=== PATIENT | male | born 1955 | race Caucasian/White ===

== ENCOUNTER 2017-01-20 16:49 | Emergency (ER) | payer MEDICARE, OTHER ==
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
--- NOTE | 2017-01-20 18:06 | XR ---
EXAMINATION TYPE: XR chest 2V DATE OF EXAM: 01/20/2017 5:55 PM COMPARISON: 06/05/2016 HISTORY: Shortness of breath TECHNIQUE: Frontal and lateral views of the chest are obtained. FINDINGS: Scattered senescent parenchymal changes noted. Hyperinflation compatible with COPD. No evidence for infiltrate. No evidence for atelectasis. Chronic pleural parenchymal change in right lateral lung base. Heart size is stable. Mediastinal structures are stable and grossly unremarkable. No evidence for hilar prominence. Degenerative changes dorsal spine. IMPRESSION: 1. No evidence for acute pulmonary disease.
--- NOTE | 2017-01-20 18:06 | US ---
EXAMINATION TYPE: US venous doppler duplex UE RT DATE OF EXAM: 01/20/2017 5:49 PM COMPARISON: NONE CLINICAL HISTORY: swelling r/o dvt. Intermittent right arm edema, right wrist/hand pain SIDE PERFORMED: right Right Arm: No evidence of DVT as visualized. *Incidental finding: lump right back of neck, heterogene ous area noted = 3.9 x 1.7 x 2.7cm IMPRESSION: 1. No evidence for DVT. 2. Nonspecific masslike area at the base of the neck. Consider CT correlation.
[2017-01-20] MEDS ORDERED: RX INFO: IV CONTRAST WAS GIVEN 1 EACH MISC MISCELLANE PRN (18:09)
[2017-01-20 18:24] VITALS: BP 116/70; PULSE 78; RESP 18; TEMP 97
== END 2017-01-20 18:23 | disposition home or self-care (01) ==
LOC: EC 16:49
DX: M79.89 Other specified soft tissue disorders (principal); R22.1 Localized swelling, mass and lump, neck; F17.200 Nicotine dependence, unspecified, uncomplicated; I25.2 Old myocardial infarction; F43.10 Post-traumatic stress disorder, unspecified; Z79.51 Long term (current) use of inhaled steroids; Z79.82 Long term (current) use of aspirin; Z79.899 Other long term (current) drug therapy
CPT/HCPCS: 71020; 99284

== ENCOUNTER → 2021-06-23 | Outpatient (CLI) | payer OTHER ==
--- NOTE | 2021-06-23 08:16 | CTL ---
EXAMINATION TYPE: CT Low Dose Lung DATE OF EXAM ORDERED: 06/23/2021 COMPARISON: None HISTORY: . Low Dose CT Lung Screening CT DLP: 91.[address] CTDI: 2.3 mGy IV CONTRAST USED: None. SCREENING VISIT: First visit COMPARISON: None. TECHNIQUE: Low dose computed tomography scan was performed through the chest at 1 millimeter thick se ctions and reconstructed images in the coronal plane at [address] DIAGNOSTIC QUALITY: Satisfactory FINDINGS: LUNG NODULES: Pleural-based 4 mm nodule right upper lobe image 182. Calcified granuloma left upper lo be. LUNGS: COPD: Severity: Moderate. Moderate centrilobular emphysema. Fibrosis: Severity:None Lymph nodes: None Other findings: None RIGHT PLEURAL SPACE: Effusion: None Calcification: None Thickening: None Pneumothorax: None LEFT PLEURAL SPACE: Effusion: None Calcification: None Thickening: None Pneumothorax: None HEART: Heart Size: Mildly enlarged Coronary calcification: Mild Pericardial effusion: None OTHER FINDINGS: Upper abdomen: No significant abnormality Bony thorax: Degenerative changes Supraclavicular region: No significant abnormalityOther: No significant abnormalityI IMPRESSION: Benign FOLLOW UP CT CHEST RECOMMENDATION: Follow-up screening in one year CT LUNG RAD: LUNG RAD CATEGORY 2 benign
== END | disposition home or self-care (01) ==
LOC: RADCTMAIN 06:49
DX: Z12.2 Encounter for screening for malignant neoplasm of respiratory organs (principal); R91.1 Solitary pulmonary nodule
CPT/HCPCS: 71271

== ENCOUNTER → 2021-07-10 | Outpatient (CLI) | payer OTHER ==
--- NOTE | 2021-07-10 09:53 | US ---
EXAMINATION TYPE: US duplex aorta DATE OF EXAM: 07/10/2021 COMPARISON: CT 2016 CLINICAL HISTORY: G87.891 Personal history of nicotine dependence. Medicare screening EXAM MEASUREMENTS: Abdominal Aorta: TRV X AP Proximal: 1.7x2.1cm Mid: 1.6x1.8cm Distal: 1.4x1.7cm Bifurcation: 0.7x 0.8cm 0.7x0.9cm Large amount of plaque seen in the Left iliac, plaque seen throughout Diffuse atherosclerotic changes are present on images saved. Aorta is successfully visualized through the bifurcation. IMPRESSION: No ultrasound evidence for greater than 3.0 cm AAA.
== END | disposition home or self-care (01) ==
LOC: RADUSWWP 08:59
DX: Z13.6 Encounter for screening for cardiovascular disorders (principal); Z87.891 Personal history of nicotine dependence; I70.0 Atherosclerosis of aorta
CPT/HCPCS: 93979

== ENCOUNTER 2021-11-07 14:45 | Emergency (ER) | payer OTHER ==
[2021-11-07 15:08] VITALS: BP 164/64; PULSE 82; RESP 18; TEMP 98.4
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
[2021-11-07] MEDS ORDERED: SODIUM CHLORIDE 0.9% 1,000 ML IV ONE (16:15)
[2021-11-07 16:34] LABS: Basophils % (A) 1 %; Eosinophils # (A) 0.3 k/uL (0-0.7); Eosinophils % (A) 4 %; HCT 44.8 % (39.0-53.0); Lymphocytes # (A) 1.5 k/uL (1.0-4.8); Lymphocytes % (A) 18 %; MCH 31.7 pg (25.0-35.0); MCHC 33.5 g/dL (31.0-37.0); MCV 94.5 fL (80.0-100.0); Mean Platelet Volume 8.3; Monocytes # (A) 0.2 k/uL (0-1.0); Monocytes % (A) 2 %; Neutrophils # (A) 5.9 k/uL (1.3-7.7); Neutrophils % (A) 74 %; Platelet Count 148 k/uL (150-450); RBC 4.74 m/uL (4.30-5.90); RDW 13.6 % (11.5-15.5)
[2021-11-07 16:43] LABS: ALT 19 U/L (4-49); AST 28 U/L (17-59); African American GFR (CKD) >90 (>60 ml/min/1.73 sqM); Albumin 4.1 g/dL (3.5-5.0); Alkaline Phosphatase 88 U/L (38-126); Anion Gap 10 mmol/L; Blood Urea Nitrogen 13 mg/dL (9-20); Calcium 8.4 mg/dL (8.4-10.2); Carbon Dioxide 20 mmol/L (22-30); Chloride 106 mmol/L (98-107); Glucose 149 mg/dL (74-99); Non-African American GFR(CKD) 87 (>60 ml/min/1.73 sqM); Phosphorus 2.6 mg/dL (2.5-4.5); Potassium 3.8 mmol/L (3.5-5.1); Sodium 136 mmol/L (137-145); Total Bilirubin 0.5 mg/dL (0.2-1.3)
[2021-11-07 17:47] LABS: INR 0.9 (<1.2); Partial Thromboplastin Time 22.3 sec (22.0-30.0); Prothrombin Time 10.2 sec (9.0-12.0)
== END 2021-11-07 18:04 | disposition home or self-care (01) ==
LOC: EC 14:45
DX: R79.9 Abnormal finding of blood chemistry, unspecified (principal); I25.2 Old myocardial infarction; F43.10 Post-traumatic stress disorder, unspecified; F17.200 Nicotine dependence, unspecified, uncomplicated; F12.90 Cannabis use, unspecified, uncomplicated; Z90.49 Acquired absence of other specified parts of digestive tract; Z79.82 Long term (current) use of aspirin
CPT/HCPCS: 36415; 80053; 83735; 84100; 85025; 85610; 85730; 96360; 99283

== ENCOUNTER → 2022-07-27 | Outpatient (CLI) | payer OTHER | END | disposition home or self-care (01) | LOC: LABWHC1 08:21 | PROVIDERS: ATTEND Surgery Plastic and Reconstructive Surgery | DX: I11.9 Hypertensive heart disease without heart failure (principal) | CPT/HCPCS: 36415; 93005 ==

== ENCOUNTER → 2022-07-27 | Outpatient (CLI) | payer OTHER ==
--- NOTE | 2022-07-27 08:41 | CTL ---
EXAMINATION TYPE: CT Low Dose Lung DATE OF EXAM: 07/27/2022 8:22 AM CLINICAL INDICATION:Male, 67 years old with history of Z87.891 personal hx nicotine dependence; Perso nal history of nicotine dependence , history of tobacco use. COMPARISON: 06/23/2021 TECHNIQUE: Multiple axial non-contrast scans were obtained from approximately the lung apices through the upper abdomen. Coronal and sagittal reformatted images were obtained. Low dose technique was uti lized. CT DLP: 87.2 mGycm, Automated exposure control for dose reduction was used. CT Contrast: Contrast used: None Oral contrast used: None FINDINGS: ======== Lack of intravenous contrast and low dose technique limits the evaluation of the vascular and soft ti ssue structures. LUNGS: There is centrilobular and paraseptal emphysema changes. Nodules: RUL: 4 mm nodule anteriorly along the pleura is unchanged series 4 image 181. RML: Nodular change next the fissure measuring up to 7 mm is unchanged from prior. Could represen t atelectasis series 4 image 134 RLL: None. BECKI: Calcified granuloma series 4 image 84, LLL: None. AIRWAYS: Unremarkable. LOWER NECK: Grossly unremarkable. LYMPH NODES: No grossly enlarged lymph nodes in the thorax. MEDIASTINUM?AND JOHN: Grossly unremarkable. HEART AND VASCULAR STRUCTURES: The heart is within normal limits for size there is moderate to severe coronary artery atherosclerosis. Atherosclerosis of the arterial vasculature. PLEURA & PERICARDIUM: Grossly unremarkable. CHEST WALL: Grossly unremarkable. MUSCULOSKELETAL: Multilevel disc degeneration changes throughout the spine. UPPER ABDOMEN: Calcified granuloma in the spleen. IMPRESSION: 1. Stable pulmonary nodules from prior exam on 06/23/2021. 2. Moderate emphysema changes. 3. Moderate to severe coronary artery atherosclerosis. CT LUNG RAD AND CT CHEST RECOMMENDATION: Lung-Rad 2 Benign Appearance or Behavior: Continue annual sc reening with LDCT in 12 months. S Modifier (other clinically significant findings): Moderate to severe coronary artery atherosclerosi s.
== END | disposition home or self-care (01) ==
LOC: RADCTMAIN 08:03
DX: Z12.2 Encounter for screening for malignant neoplasm of respiratory organs (principal); I25.10 Atherosclerotic heart disease of native coronary artery without angina pectoris; J43.2 Centrilobular emphysema; R91.8 Other nonspecific abnormal finding of lung field; Z87.891 Personal history of nicotine dependence
CPT/HCPCS: 71271

== ENCOUNTER → 2022-12-24 | Outpatient (CLI) | payer OTHER ==
[2022-12-24 16:06] LABS: African American GFR (CKD) 89.4 (60.0-200.0); Anion Gap 8.5 mmol/L (10.00-18.00); Blood Urea Nitrogen 15.5 mg/dL (9.0-27.0); Carbon Dioxide 26.7 mmol/L (20.0-27.5); Non-African American GFR(CKD) 77.2 (60.0-200.0); Potassium 4.8 mmol/L (3.5-5.5)
[2022-12-24 16:17] LABS: HCT 47.7 % (39.6-50.0); HGB 15.2 g/dL (13.0-17.0); MCH 30.4 pg (27.0-32.0); MCHC 31.9 g/dL (32.0-37.0); MCV 95.4 fL (80.0-97.0); Mean Platelet Volume 11.8 fL (9.5-12.2); NRBC Per 100 WBC 0 /100 WBCS (0.0-0.0); Platelet Count 161 X 10*3/uL (140-440); RDW 13.2 % (11.5-14.5)
== END | disposition home or self-care (01) ==
LOC: LABWHC1 09:45
PROVIDERS: ATTEND Internal Medicine Interventional Cardiology
DX: Z01.812 Encounter for preprocedural laboratory examination (principal); I25.10 Atherosclerotic heart disease of native coronary artery without angina pectoris
CPT/HCPCS: 36415; 80051; 82565; 84520; 85027

== ENCOUNTER 2023-01-01 10:08 | Inpatient (IN) | payer OTHER ==
[~2023-01-01 10:08] MED LIST: ALPRAZolam 0.25 MG TAB PO PRN; ALPRAZolam 0.5 MG TAB PO PRN; ASPIRIN 325 MG TAB PO STA; ATORVASTATIN 80 MG TAB PO STA; HEPARIN SODIUM,PORCINE 10,000 UNIT in SODIUM CHLORIDE 0.9% 1,000 ML IRRIGATION PRN; HEPARIN SODIUM,PORCINE 2,500 UNIT in SODIUM CHLORIDE 0.9% 250 ML IRRIGATION PRN; NITROGLYCERIN SL TABS 0.4 MG TAB SUBLINGUAL PRN; SODIUM CHLORIDE 0.9% 1,000 ML in EMPTY BAG 1 BAG IV SCH
[2023-01-01] MEDS ORDERED: LIDOCAINE 1% INJ 10MG/ML (20 ML MDV) ONE (12:57)
[2023-01-01] MEDS ORDERED: VERAPAMIL 2.5 MG/ML 2 ML AMP ONE (12:57)
[2023-01-01] MEDS ORDERED: LIDOCAINE 1% INJ 10MG/ML (5 ML VIAL-PF) SQ ONE (13:10)
[2023-01-01] MEDS ORDERED: MIDAZOLAM 2 MG/2 ML VIAL IV ONE (13:11)
[2023-01-01] MEDS ORDERED: VERAPAMIL SYRINGE (5 MG/10 ML) INTRAARTER ONE (13:11)
[2023-01-01] MEDS: HEPARIN SODIUM 1,000 UN/ML (10ML VL) IV ONE ×2 (13:13→13:41)
[2023-01-01] MEDS ORDERED: niCARdipine 25 MG/10 ML VIAL ONE (13:43)
[2023-01-01] MEDS ORDERED: fentaNYL (PF) 50 MCG/ML 2 ML AMP ONE (13:52)
[2023-01-01] MEDS ORDERED: fentaNYL (PF) 50 MCG/ML 2 ML AMP IV ONE (13:54)
[2023-01-01] MEDS ORDERED: PRASUGREL 10 MG TAB ONE (14:28)
[2023-01-01] MEDS ORDERED: PRASUGREL 10 MG TAB PO ONE (14:30)
[2023-01-01] MEDS ORDERED: NITROGLYCERIN 1000MCG/10ML SYRINGE INTRACORON ONE (14:34)
[2023-01-01] MEDS ORDERED: niCARdipine Syringe (1,000 mcg/10 mL) INTRACORON ONE (14:35)
[2023-01-01] MEDS ORDERED: ZOLPIDEM 5 MG TAB PO PRN ×2 (14:49→14:52)
[2023-01-01] MEDS ORDERED: IPRATROPIUM-ALBUTEROL 3 ML NEB INHALATION PRN (14:49)
[2023-01-01] MEDS ORDERED: MAG HYDROX/AL HYDROX/SIMETH 30 ML CUP PO PRN (14:52)
[2023-01-01] MEDS ORDERED: ATROPINE SULFATE 0.1 MG/ML 10ML SYRINGE IV PRN (14:52)
[2023-01-01] MEDS ORDERED: RX INFO: IV CONTRAST WAS GIVEN 1 EACH MISC MISCELLANE PRN (14:52)
[2023-01-01] MEDS ORDERED: HYDROmorphone 1 MG/ML 1 ML SYRINGE ONE (14:58)
[2023-01-01] MEDS ORDERED: IOPAMIDOL-370 125ML BTL INJ ONE (15:02)
[2023-01-01] MEDS ORDERED: ENALAPRILAT 1.25 MG/ML 1 ML VIAL ONE (15:03)
[2023-01-01] MEDS ORDERED: hydrALAZINE HCL 20 MG/ML 1 ML VIAL ONE (15:03)
[2023-01-01] MEDS ORDERED: NITROGLYCERIN-D5W PMX 50 MG in DEXTROSE/WATER 1 250ML.BAG IV SCH (15:45)
[2023-01-01 17:08] LABS: Glucose,Whole Blood 136 mg/dL (70-110)
[2023-01-01] MEDS: GABAPENTIN 400 MG CAP PO SCH ×2 (18:37→21:30)
[2023-01-01] MEDS: SYMBICORT 160-4.5 MCG INHALER INHALATION SCH (20:05)
--- NOTE | 2023-01-01 20:06 | P.PCN ---
Date of Procedure: 01/01/23 Operative Findings: CARDIAC CATHETERIZATION AND PERCUTANEOUS CORONARY INTERVENTION PERFORMING PHYSICIAN: Mian Swain MD, [facility] PROCEDURE PERFORMED: 1. Selective right and left coronary angiogram 2. Successful stenting of mid RCA using using 3.0 x 38 mm Xience JOSR with an excellent angiographic results 3. Successful stenting of the proximal RCA using 3.25 x 23 mm Xience JOSR with an excellent angiographic results 4. Adjunctive use of intravascular ultrasound of the right coronary artery INDICATION: Chest discomfort concerning for angina in this 67-year-old gentleman with coronary artery disease and prior stenting of the right coronary artery as well as significant history of smoking COMPLICATION: None APPROACH: Right radial artery LEVEL OF SEDATION: Moderate with the sedation time of 100 minutes PROCEDURE DESCRIPTION: After obtaining an informed consent the patient was brought to the cardiac slab worker. The right radial artery was cannulated using micropuncture technique under ultrasound guidance, the micropuncture wire passed easily then I placed a 6- Slovak sheath at the right radial artery. I gave the patient 2 mg of verapamil intra-arterial and 5000 use of heparin intravenous. I did after that selective right and left coronary angiogram using JR4 and JL 3.5 catheters. After that I did intervene on the right coronary artery. The procedure was completed was no complication. SELECTIVE CORONARY ANGIOGRAM: The right coronary artery: Large-caliber vessel and a dominant vessel. The proximal RCA has a critical lesion appeared to be in the range of 80%. The mid RCA has also critical in- stent restenosis appeared to be in the range of 99.9%. Left main: Has mild disease only. Bifurcates into an LCx and LAD The left circumflex: The LCx gives rises into an OM1 which appeared to be angiographically normal. The LCx gives rises into on to which is a large caliber vessel has a lesion appears to be in the range of 60%. The left anterior descending artery: The proximal LAD appears to have mild disease only. The mid LAD also has mild disease only. The LAD in the mid to distal portion has a lesion appeared to be in the range of 40%. PCI OF THE RCA: Anticoagulation was initiated using heparin with continuous ACT monitoring. Subsequently I did engage the right coronary artery using JR4 guiding catheter. I did wire the right coronary artery using a whisper wire. Attempting advancing 2.0 mm balloon was unsuccessful. At that point I decided to wire the right coronary artery using another wire with a run-through wire. Both wires were positioned in the PDA and PLV branches of the right coronary artery. I could not advanced a 2.0 mm balloon in spite of using double wire and at that point I decided to start using 1.5 mm balloon which was inflated under 14 jesse for 20 seconds. Subsequently I was able to advance 2.0 15 mm balloon which was inflated but the balloon was not fully inflated. I decided to go ahead and use 2.0 mm noncompliant balloon which was inflated under 16 jesse. Subsequently I used 2.25 mm and subsequently 2.5 mm and then 3 mm noncompliance balloon. After that I was able to advance 3.0 x 38 mm stent where the stent was positioned under fluoroscopy guidance and deployed under its nominal pressure after the jean pierre wire was pulled out. Then approximately I did balloon angioplasty using 3 mm balloon before I deployed 3.25 x 23 mm stent where the stent again was positioned under fluoroscopy guidance and deployed under its nominal pressure. Final angiogram was performed and showed excellent angiographic results and the procedure was completed was no complication CONCLUSION: Critical disease involving the proximal and mid RCA. I did perform successful s tenting of the proximal and mid RCA as described above At least intermediate lesion involving the second obtuse marginal branch of the left circumflex which is a large caliber vessel POSTPROCEDURE MANAGEMENT: 1. Dual antiplatelet therapy using aspirin and Plavix for 12 month 2. Consider PCI of the OM 2 if the patient remains symptomatic
[2023-01-01] MEDS ORDERED: ATORVASTATIN 20 MG TAB PO SCH (21:00)
[2023-01-01] MEDS ORDERED: risperiDONE 1 MG TAB PO SCH (21:00)
[2023-01-01] MEDS: CYCLOBENZAPRINE 10 MG TAB PO SCH (21:30)
[2023-01-02 06:16] LABS: Basophils % (A) 0 %; Eosinophils # (A) 0.1 k/uL (0-0.7); Eosinophils % (A) 1 %; HCT 42.6 % (39.0-53.0); HGB 14.3 gm/dL (13.0-17.5); Lymphocytes # (A) 1.3 k/uL (1.0-4.8); Lymphocytes % (A) 13 %; MCH 30.8 pg (25.0-35.0); MCHC 33.5 g/dL (31.0-37.0); MCV 91.7 fL (80.0-100.0); Mean Platelet Volume 8.6; Monocytes # (A) 0.4 k/uL (0-1.0); Monocytes % (A) 4 %; Neutrophils # (A) 8.3 k/uL (1.3-7.7); Neutrophils % (A) 81 %; Platelet Count 146 k/uL (150-450); RBC 4.65 m/uL (4.30-5.90); RDW 13.2 % (11.5-15.5); WBC 10.2 k/uL (3.8-10.6)
[2023-01-02 07:00] LABS: African American GFR (CKD) >90 (>60 ml/min/1.73 sqM); Anion Gap 9 mmol/L; Blood Urea Nitrogen 11 mg/dL (9-20); Calcium 8.6 mg/dL (8.4-10.2); Carbon Dioxide 21 mmol/L (22-30); Chloride 108 mmol/L (98-107); Glucose 101 mg/dL (74-99); Non-African American GFR(CKD) >90 (>60 ml/min/1.73 sqM); Potassium 3.7 mmol/L (3.5-5.1); Sodium 138 mmol/L (137-145)
[2023-01-02] MEDS ORDERED: PANTOPRAZOLE 40 MG TABLET PO SCH (07:30)
--- NOTE | 2023-01-02 07:49 | P.DS ---
Providers Date of admission: 01/01/23 16:16 Attending physician: Mian Swain Consults: 01/01/23 14:52 Consult Physician Routine Consulting Provider: [facility] Consult Reason/Comments: Post Interventional Patient Do you want consulting provider notified?: Already Contacted Primary care physician: [facility] Course: The patient is a pleasant 67-year-old gentleman who underwent yesterday a heart catheterization and was found to have critical disease involving the left circumflex coronary artery. He underwent successful stenting of the left circumflex with an extremely complex procedure due to critical in-stent restenosis in a very healthy calcified artery. The procedure was performed from right radial approach with a good angiographic results by the end. Postprocedure the patient developed chest discomfort with ST segment elevation in lead V1 only because we closely acute marginal branch during the stenting. Subsequently his pressure was elevated. He was started on nitroglycerin IV and he was admitted to the intensive care unit. He was watched overnight. He has been off nitroglycerin since midnight. His pressure has been within normal limits. He is asymptomatic from a cardiac vascular standpoint of view. He is "feeling well". The patient is going to be discharged on dual antiplatelet therapy along with high intensity statin. I'm going to follow-up with the patient next week in the office. He was advised an informed about the importance of taking dual antiplatelet therapy religiously. Plan - Discharge Summary Discharge Rx Participant: Yes New Discharge Prescriptions: New Clopidogrel [Plavix] 75 mg PO DAILY #90 tablet Continue Aspirin EC [Ecotrin Low Dose] 81 mg PO DAILY Zolpidem [Ambien] 10 mg PO HS PRN PRN Reason: Insomnia Tamsulosin HCl [Flomax] 0.4 mg PO DAILY Sertraline [Zoloft] 150 mg PO DAILY Omeprazole 20 mg PO DAILY Lovastatin [Mevacor] 80 mg PO HS Gabapentin [Neurontin] 800 mg PO TID Cyclobenzaprine [Flexeril] 10 mg PO TID Budesonide-Formot 160-4.5 Mcg [Symbicort 160-4.5 Mcg Inhaler] 2 puff INHALAT ION RT-BID Ipratropium-Albuterol Nebulize [Duoneb 0.5 mg-3 mg/3 ml Soln] 3 ml INHALATION RT-Q6H PRN PRN Reason: Shortness Of Breath risperiDONE 0.5 mg PO DAILY Vit D (Unknown) 1 tab PO DAILY Feosol (Unknown) 1 tab PO DAILY risperiDONE 1 mg PO HS Discharge Medication List Aspirin EC [Ecotrin Low Dose] 81 mg PO DAILY 05/18/16 [History] Cyclobenzaprine [Flexeril] 10 mg PO TID 05/18/16 [History] Gabapentin [Neurontin] 800 mg PO TID 05/18/16 [History] Lovastatin [Mevacor] 80 mg PO HS 05/18/16 [History] Omeprazole 20 mg PO DAILY 05/18/16 [History] Sertraline [Zoloft] 150 mg PO DAILY 05/18/16 [History] Tamsulosin HCl [Flomax] 0.4 mg PO DAILY 05/18/16 [History] Zolpidem [Ambien] 10 mg PO HS PRN 05/18/16 [History] Budesonide-Formot 160-4.5 Mcg [Symbicort 160-4.5 Mcg Inhaler] 2 puff INHALATION RT-BID 01/20/17 [History] Ipratropium-Albuterol Nebulize [Duoneb 0.5 mg-3 mg/3 ml Soln] 3 ml INHALATION RT-Q6H PRN 01/20/17 [History] Feosol (Unknown) 1 tab PO DAILY 12/30/22 [History] Vit D (Unknown) 1 tab PO DAILY 12/30/22 [History] risperiDONE 0.5 mg PO DAILY 12/30/22 [History] risperiDONE 1 mg PO HS 12/30/22 [History] Clopidogrel [Plavix] 75 mg PO DAILY #90 tablet 01/02/23 [Rx] Follow up Appointment(s)/Referral(s): Mian Swain MD [STAFF PHYSICIAN] - 01/06/23 2:30 pm
[2023-01-02] MEDS ORDERED: POTASSIUM BICARBONATE/CIT AC 20 MEQ TABLET.EFF NG-TUBE SCH (08:00)
[2023-01-02] MEDS ORDERED: POTASSIUM CHLORIDE ER 20 MEQ TAB.ER PO SCH (08:00)
[2023-01-02] MEDS ORDERED: ACETAMINOPHEN TAB 325 MG TAB PO PRN (08:08)
[2023-01-02] MEDS: GABAPENTIN 400 MG CAP PO SCH (08:15)
[2023-01-02] MEDS: CYCLOBENZAPRINE 10 MG TAB PO SCH (08:17)
[2023-01-02 08:25] VITALS: TEMP 98
[2023-01-02] MEDS ORDERED: TAMSULOSIN 0.4 MG CAP.ER.24H PO SCH (09:00)
[2023-01-02] MEDS ORDERED: SERTRALINE 50 MG TAB PO SCH (09:00)
[2023-01-02] MEDS ORDERED: ASPIRIN 325 MG TAB PO SCH (09:00)
[2023-01-02] MEDS ORDERED: FERROUS SULFATE 325 MG TAB PO SCH (09:00)
[2023-01-02] MEDS ORDERED: PRASUGREL 10 MG TAB PO SCH (09:00)
[2023-01-02] MEDS ORDERED: CHOLECALCIFEROL 25 MCG (1000 IU) TABLET PO SCH (09:00)
[2023-01-02] MEDS ORDERED: risperiDONE 0.5 MG TAB PO SCH (09:00)
[2023-01-02] MEDS ORDERED: ASPIRIN 81 MG PO SCH (09:00)
[2023-01-02 10:16] VITALS: BP 149/108; PULSE 90; RESP 25
[2023-01-02] MEDS: SYMBICORT 160-4.5 MCG INHALER INHALATION SCH (10:56)
== END 2023-01-02 11:13 | disposition home or self-care (01) | DRG 247 ==
LOC: CATHCVL 10:08 → 2SICU 16:16
PROVIDERS: ADMIT Internal Medicine Interventional Cardiology; ATTEND Internal Medicine Interventional Cardiology
PROC: 027035Z Dilation of Coronary Artery, One Artery with Two Drug-eluting Intraluminal Devices, Percutaneous Approach (ICD-10-PCS; principal; 2023-01-01 13:04)
PROC: 4A023N7 Measurement of Cardiac Sampling and Pressure, Left Heart, Percutaneous Approach (ICD-10-PCS; principal; 2023-01-01 13:04)
PROC: B240ZZ3 Ultrasonography of Single Coronary Artery, Intravascular (ICD-10-PCS; principal; 2023-01-01 13:04)
PROC: B2111ZZ Fluoroscopy of Multiple Coronary Arteries using Low Osmolar Contrast (ICD-10-PCS; principal; 2023-01-01 13:04)
DX: I25.10 Atherosclerotic heart disease of native coronary artery without angina pectoris (principal); T82.855A Stenosis of coronary artery stent, initial encounter; I10 Essential (primary) hypertension; E78.5 Hyperlipidemia, unspecified; R07.89 Other chest pain; J44.9 Chronic obstructive pulmonary disease, unspecified; F17.210 Nicotine dependence, cigarettes, uncomplicated; Z28.310 Unvaccinated for COVID-19; Z95.5 Presence of coronary angioplasty implant and graft; Z79.899 Other long term (current) drug therapy
CPT/HCPCS: 80048; 85025; 92978; 93454

== ENCOUNTER 2023-07-13 09:44 | Day surgery (SDC) | payer OTHER ==
[~2023-07-13 09:44] MED LIST changes: +HEPARIN SODIUM,PORCINE (1 ML) 2,500 UNIT in SODIUM CHLORIDE 0.9% 250 ML IRRIGATION PRN; -HEPARIN SODIUM,PORCINE 2,500 UNIT in SODIUM CHLORIDE 0.9% 250 ML IRRIGATION PRN
[2023-07-13] MEDS ORDERED: SODIUM CHLORIDE 0.9% 1,000 ML IV ONE (10:24)
[2023-07-13 10:41] LABS: Basophils % (A) 1 %; Eosinophils # (A) 0.3 k/uL (0-0.7); Eosinophils % (A) 4 %; HCT 49.6 % (39.0-53.0); HGB 16.2 gm/dL (13.0-17.5); Lymphocytes # (A) 2.1 k/uL (1.0-4.8); Lymphocytes % (A) 29 %; MCH 30.6 pg (25.0-35.0); MCHC 32.7 g/dL (31.0-37.0); MCV 93.4 fL (80.0-100.0); Mean Platelet Volume 8.3; Monocytes # (A) 0.3 k/uL (0-1.0); Monocytes % (A) 4 %; Neutrophils # (A) 4.3 k/uL (1.3-7.7); Neutrophils % (A) 61 %; Platelet Count 180 k/uL (150-450); RBC 5.31 m/uL (4.30-5.90); RDW 13.4 % (11.5-15.5); WBC 7.1 k/uL (3.8-10.6)
[2023-07-13 10:57] LABS: African American GFR (CKD) 71 (>60 ml/min/1.73 sqM); Anion Gap 12 mmol/L; Blood Urea Nitrogen 18 mg/dL (9-20); Calcium 9.3 mg/dL (8.4-10.2); Carbon Dioxide 24 mmol/L (22-30); Chloride 103 mmol/L (98-107); Glucose 92 mg/dL (74-99); Non-African American GFR(CKD) 62 (>60 ml/min/1.73 sqM); Sodium 139 mmol/L (137-145)
[2023-07-13 11:05] LABS: Potassium 4.5 mmol/L (3.5-5.1)
[2023-07-13] MEDS ORDERED: MIDAZOLAM 2 MG/2 ML VIAL IVP ONE ×2 (12:39→12:49)
[2023-07-13] MEDS ORDERED: LIDOCAINE 1% INJ 10MG/ML (20 ML MDV) SQ ONE ×2 (12:40)
[2023-07-13] MEDS ORDERED: VERAPAMIL SYRINGE (5 MG/10 ML) INTRAARTER ONE (12:42)
[2023-07-13] MEDS ORDERED: HEPARIN SODIUM 1,000 UN/ML (10ML VL) ONE (12:44)
[2023-07-13] MEDS: HEPARIN SODIUM 1,000 UN/ML (10ML VL) IV ONE ×2 (12:46→13:00)
[2023-07-13] MEDS ORDERED: NITROGLYCERIN SL TABS 0.4 MG TAB SUBLINGUAL ONE ×2 (12:47→12:48)
[2023-07-13] MEDS ORDERED: fentaNYL (PF) 50 MCG/ML 2 ML AMP ONE (13:07)
[2023-07-13] MEDS ORDERED: fentaNYL (PF) 50 MCG/ML 2 ML AMP IVP ONE (13:08)
[2023-07-13] MEDS ORDERED: IOPAMIDOL-370 200ML BTL INJ ONE (13:34)
[2023-07-13] MEDS ORDERED: ATROPINE SULFATE 0.1 MG/ML 10ML SYRINGE IV PRN (13:41)
[2023-07-13] MEDS ORDERED: RX INFO: IV CONTRAST WAS GIVEN 1 EACH MISC MISCELLANE PRN (13:41)
[2023-07-13] MEDS ORDERED: ZOLPIDEM 5 MG TAB PO PRN (13:41)
[2023-07-13] MEDS ORDERED: MAG HYDROX/AL HYDROX/SIMETH 30 ML CUP PO PRN (13:41)
[2023-07-13] MEDS ORDERED: CLOPIDOGREL 75 MG TAB PO ONE (13:43)
[2023-07-13] MEDS ORDERED: CLOPIDOGREL 75 MG TAB ONE (13:43)
[2023-07-13] MEDS: GABAPENTIN 400 MG CAP PO SCH ×2 (16:55→20:03)
[2023-07-13] MEDS: CYCLOBENZAPRINE 10 MG TAB PO SCH ×2 (18:18→20:03)
--- NOTE | 2023-07-13 19:57 | P.PCN ---
Date of Procedure: 07/13/23 Operative Findings: Cardiac catheterization and percutaneous coronary intervention Performing physician Mian Swain Procedure performed - Selective right and left coronary angiogram - Successful stenting of the first diagonal branch of the LAD Indication This is a 68-year-old gentleman with CAD and prior stenting of the RCA who continues to be symptomatic with shortness of breath with exertion similar to what he had before he underwent stenting of the RCA before. 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 The right radial artery was cannulated using micropuncture technique and subsequently advanced a micropuncture wire then the sheath was advanced over the wire. Subsequently I gave the patient 2 mg of verapamil intra-arterial and 5000's of heparin intravenous. Selective right and left coronary angiogram p erformed using JR4 and JL 3.5 catheters. After that I did intervene on the diagonal branch. The procedure was completed with no complication Selective coronary angiogram The RCA is a large caliber vessel and a dominant vessel. The ostial RCA has intermediate lesion appeared to be in the range of 40-50%. The mid RCA stent and the stent is patent. The RCA distally appeared to be angiographically normal. The left main Appeared to have mild disease only. Bifurcates into an LCx and LAD The LCx Is a large caliber vessel and nondominant vessel. The LCx proximally gives us into an OM branch which appeared to be angiographically normal and works as a ramus intermedius. Proximally gives rise into a first OM branch which has also intermediate lesion proximally appeared to be in the range of 40-50% before the circumflex continues in the AV groove The LAD Large caliber vessel. The LAD has mild disease only but gives rise into a medium sized diagonal branch which has proximal lesion appeared to be in the range of 80%. Please noted that the LAD in the midportion has intermediate lesion appeared to be also in the range of 50-60% PCI of the diagonal Anticoagulation was initiated using heparin with continuous ACT monitoring. Subsequently I did engage the left main using JL 3.5 guiding catheter. I did wire the diagonal branch using currently through wire. Balloon angioplasty was performed using 2.0 mm balloon. Attempting advancing 2.5 x 18 mm stent was unsuccessful in spite of using double wire. Subsequently I decided to balloon using 2.5 mm semi-compliant balloon and in spite of that I was unable to advance the stent. I did use 2.5 mm noncompliant balloon and balloon angioplasty was performed with no success in advancing the stent. After that I decided to use the [place] stent. In spite of that I was unable to advance the stent. I wired the LAD initially to protect the LAD and subsequently the wire was pulled from the LAD and advanced toward the diagonal I have 2 wires in the diagonal and in spite of that I was able to advance any of the stent. Finally I was able to use guide liner and get the stent to the diagonal. The stent was positioned under fluoroscopy guidance and deployed under fluoroscopy guidance with the procedure was completed with no complication final angiogram was performed and showed CHEMA III flow. The patient tolerated the procedure very well Conclusion - Patent stent in the mid RCA. Intermediate lesion involving the ostial RCA - Intermediate lesion involving the first OM - Intermediate lesion involving the mid LAD. - Critical disease involving the first diagonal. I did perform successful stenting of the first diagonal Postprocedure management Dual antiplatelet therapy using aspirin and Plavix for at least 6 months Consider FFR of the RCA and OM and LAD if the patient remains symptomatic
[2023-07-13] MEDS ORDERED: TAMSULOSIN 0.4 MG CAP.ER.24H PO SCH (21:00)
[2023-07-13] MEDS ORDERED: risperiDONE 1 MG TAB PO SCH (21:00)
[2023-07-13] MEDS: SYMBICORT 80-4.5 MCG INHALER INHALATION SCH (21:08)
[2023-07-14 06:04] LABS: Basophils % (A) 1 %; Eosinophils # (A) 0.3 k/uL (0-0.7); Eosinophils % (A) 4 %; HCT 43.5 % (39.0-53.0); HGB 14.5 gm/dL (13.0-17.5); Lymphocytes # (A) 1.2 k/uL (1.0-4.8); Lymphocytes % (A) 17 %; MCH 30.8 pg (25.0-35.0); MCHC 33.3 g/dL (31.0-37.0); MCV 92.6 fL (80.0-100.0); Mean Platelet Volume 8.8; Monocytes # (A) 0.4 k/uL (0-1.0); Monocytes % (A) 6 %; Neutrophils # (A) 5.1 k/uL (1.3-7.7); Neutrophils % (A) 71 %; Platelet Count 136 k/uL (150-450); RDW 13.3 % (11.5-15.5); WBC 7.2 k/uL (3.8-10.6)
[2023-07-14 06:22] LABS: African American GFR (CKD) 78 (>60 ml/min/1.73 sqM); Anion Gap 10 mmol/L; Blood Urea Nitrogen 19 mg/dL (9-20); Calcium 8.9 mg/dL (8.4-10.2); Carbon Dioxide 19 mmol/L (22-30); Chloride 107 mmol/L (98-107); Glucose 98 mg/dL (74-99); Non-African American GFR(CKD) 68 (>60 ml/min/1.73 sqM); Potassium 4.7 mmol/L (3.5-5.1); Sodium 136 mmol/L (137-145)
[2023-07-14 07:25] VITALS: BP 126/75; PULSE 67; RESP 14; TEMP 97.7
[2023-07-14] MEDS: GABAPENTIN 400 MG CAP PO SCH (07:58)
[2023-07-14] MEDS: CYCLOBENZAPRINE 10 MG TAB PO SCH (07:58)
--- NOTE | 2023-07-14 08:07 | P.DS ---
Providers Attending physician: Mian Swain Consults: 07/13/23 13:41 Consult Physician Routine Consulting Provider: [facility] Consult Reason/Comments: Post Interventional patient Do you want consulting provider notified?: Already Contacted Primary care physician: [facility] Course: The patient is a pleasant 68-year-old gentleman who underwent yesterday heart catheterization and stenting of the diagonal branch of the LAD He was seen and evaluated this morning. He is asymptomatic and hemodynamically stable. Right radial site soft and nontender was somewhat diminished pulse. The patient is going to discharge home on dual antiplatelet therapy along with a statin and I will follow-up with the patient next week in the office Plan - Discharge Summary Discharge Rx Participant: No New Discharge Prescriptions: Continue Aspirin EC [Ecotrin Low Dose] 81 mg PO QAM Tamsulosin HCl [Flomax] 0.4 mg PO HS Sertraline [Zoloft] 150 mg PO QAM Gabapentin [Neurontin] 800 mg PO TID Cyclobenzaprine [Flexeril] 10 mg PO TID Atorvastatin [Lipitor] 80 mg PO HS Ergocalciferol [Vitamin D2 (1250 Mcg = 43223 Iu)] 1,250 mcg PO QMONTHLY Ferrous Sulfate [Iron] 325 mg PO QAM Clopidogrel [Plavix] 75 mg PO QAM risperiDONE 1.5 mg PO HS Metoprolol Succinate (ER) [Toprol XL] 25 mg PO DAILY Fluticasone Propion/Salmeterol [Fluticasone-Salmeterol 250-50] 1 dose INHALATION BID Discharge Medication List Aspirin EC [Ecotrin Low Dose] 81 mg PO QAM 05/18/16 [History] Cyclobenzaprine [Flexeril] 10 mg PO TID 05/18/16 [History] Gabapentin [Neurontin] 800 mg PO TID 05/18/16 [History] Sertraline [Zoloft] 150 mg PO QAM 05/18/16 [History] Tamsulosin HCl [Flomax] 0.4 mg PO HS 05/18/16 [History] risperiDONE 1.5 mg PO HS 12/30/22 [History] Atorvastatin [Lipitor] 80 mg PO HS 07/08/23 [History] Clopidogrel [Plavix] 75 mg PO QAM 07/08/23 [History] Ergocalciferol [Vitamin D2 (1250 Mcg = 28636 Iu)] 1,250 mcg PO QMONTHLY 07/08/23 [History] Ferrous Sulfate [Iron] 325 mg PO QAM 07/08/23 [History] Fluticasone Propion/Salmeterol [Fluticasone-Salmeterol 250-50] 1 dose INHALATION BID 07/08/23 [History] Metoprolol Succinate (ER) [Toprol XL] 25 mg PO DAILY 07/08/23 [History] Follow up Appointment(s)/Referral(s): Mian Swain MD [STAFF PHYSICIAN] - 1 Week (APPOINTMENT MADE ON July @ 9:45AM) Patient Instructions/Handouts: Moderate Sedation (DC), After Radial Heart Catheterization (GEN) Activity/Diet/Wound Care/Special Instructions: No driving for two days Ok to shower tomorrow but no baths, pools, lakes, doing dishes by hand for five days. Signs of infection IE: fever, rash, drainage from puncture site, swelling go to ER/doctor for immediate evaluation. Avoid using right wrist/hand to bend, flex, lift greater than 5 lbs for five days. For Heavy Bleeding of puncture site apply firm direct pressure and return to ER. Do not attempt to drive self. low sodium/low fat diet MEDICATIONS DIRECTED BY [employer].
[2023-07-14] MEDS: SYMBICORT 80-4.5 MCG INHALER INHALATION SCH (08:45)
[2023-07-14] MEDS ORDERED: CLOPIDOGREL 75 MG TAB PO SCH (09:00)
[2023-07-14] MEDS ORDERED: SERTRALINE 50 MG TAB PO SCH (09:00)
[2023-07-14] MEDS ORDERED: FERROUS SULFATE 325 MG TAB PO SCH (09:00)
[2023-07-14] MEDS ORDERED: ASPIRIN 81 MG PO SCH (09:00)
[2023-07-14] MEDS ORDERED: METOPROLOL SUCCINATE (ER) 25 MG TAB.ER.24H PO SCH (09:00)
[2023-07-14] MEDS ORDERED: ATORVASTATIN 80 MG TAB PO SCH (21:00)
[2023-08-12] MEDS ORDERED: ERGOCALCIFEROL 1,250 MCG (50,000 IU) CAPSULE PO SCH (09:00)
== END 2023-07-14 09:30 | disposition home or self-care (01) ==
LOC: CATHCVL 09:44 → 6NMEDSUR 13:35 → CATHCVL 07-14 09:30
PROVIDERS: ATTEND Internal Medicine Interventional Cardiology
DX: I25.10 Atherosclerotic heart disease of native coronary artery without angina pectoris (principal); E78.5 Hyperlipidemia, unspecified; I10 Essential (primary) hypertension; F17.200 Nicotine dependence, unspecified, uncomplicated; Z79.02 Long term (current) use of antithrombotics/antiplatelets; Z79.82 Long term (current) use of aspirin; Z95.5 Presence of coronary angioplasty implant and graft; Z79.899 Other long term (current) drug therapy
CPT/HCPCS: 94640 ×2; 93454; 80048 ×2; 85025 ×2; C9600; C1769 ×3; C1894; C1887; C1725 ×3; C1874 ×2; J2250; J2001; J3010; J1644; Q9967

== ENCOUNTER → 2023-07-28 | Outpatient (CLI) | payer OTHER ==
--- NOTE | 2023-07-28 12:19 | CTL ---
EXAMINATION TYPE: CT Low Dose Lung DATE OF EXAM: 07/28/2023 11:02 AM CLINICAL INDICATION:Male, 68 years old with history of Z87.891 PERSONAL HISTORY OF NICOTINE DEPENDENC E; Personal hx nicotine dependence. 1/2 pack/day x50 years. No concerns noted at this time , history of tobacco use. COMPARISON: None. TECHNIQUE: Multiple axial non-contrast scans were obtained from approximately the lung apices through the upper abdomen. Coronal and sagittal reformatted images were obtained. Low dose technique was uti lized. CT DLP: 101.90 mGycm, Automated exposure control for dose reduction was used. CT Contrast: Contrast used: None Oral contrast used: None FINDINGS: ======== Lack of intravenous contrast and low dose technique limits the evaluation of the vascular and soft ti ssue structures. LUNGS: No evidence of pulmonary fibrosis. No evidence of focal consolidation, pneumothorax or pleural effusion. Moderate to severe emphysema changes throughout the lungs. Nodules: RUL: None. RML: Suspected peripheral atelectasis series 4 image 127 RLL: Air cyst in the medial aspect of the left lower lung. BECKI: None. LLL: None. AIRWAY: Patent and unremarkable. HEART: Size within normal limits. Severe atherosclerosis of the coronary arteries. MEDIASTINUM: No gross evidence of adenopathy. VASCULATURE: Atherosclerotic calcifications are present throughout the aorta and its branches. MUSCULOSKELETAL: No acute osseous abnormalities SOFT TISSUES/LYMPH NODES: Unremarkable. LOWER NECK: No significant findings. UPPER ABDOMEN: Layering gallstones present. IMPRESSION: 1. No clinically significant pulmonary nodules. 2. Moderate to severe emphysema changes. CT LUNG RAD AND CT CHEST RECOMMENDATION: Lung-Rad 2 Benign Appearance or Behavior: Continue annual sc reening with LDCT in 12 months. S Modifier (other clinically significant findings): None Recommend smoking cessation (if current smoker), or continuation of smoking cessation (if prior smoke r). Annual screening for lung cancer with low-dose computed tomography is recommended in adults ages 55 to 77 years who have a 30 pack-year smoking history and currently smoke or have quit within the pa st 15 years. Screening should be discontinued once a person has not smoked for 15 years or develops a health problem that substantially limits life expectancy or the ability or willingness to have curat federica lung surgery. Lung rads 2021 [email or web address]
== END | disposition home or self-care (01) ==
LOC: RADCTMAIN 08:14
PROVIDERS: ATTEND Family Medicine
DX: Z12.2 Encounter for screening for malignant neoplasm of respiratory organs (principal); F17.210 Nicotine dependence, cigarettes, uncomplicated; J43.9 Emphysema, unspecified
CPT/HCPCS: 71271

== ENCOUNTER → 2023-07-28 | Outpatient (CLI) | payer OTHER ==
--- NOTE | 2023-07-28 10:34 | US ---
EXAMINATION TYPE: US duplex aorta DATE OF EXAM: 07/28/2023 COMPARISON: NONE CLINICAL INDICATION: Male, 68 years old with history of Z13.6 SCREEN FOR HEART DISEASE; screening TECHNIQUE: Multiple sonographic images of the abdominal aorta are obtained. FINDINGS: EXAM MEASUREMENTS: Abdominal Aorta: Proximal: 1.7 x 2.0cm Mid: 1.7 x 2.0cm Distal: 1.7 x 1.8cm Bifurcation: RT: 0.8 x 1.0cm LT: 0.6 x 0.9 SULPHATE TESTER NOTES: Technical limitations due to large amount of overlying bowel gas. No evidence of AAA at this time. Atherosclerotic calcifications noted. IMPRESSION: Extensive atherosclerotic calcifications especially distally in the abdominal aorta. No sonographic e vidence for AAA.
== END | disposition home or self-care (01) ==
LOC: RADUSWWP 08:04
DX: Z13.6 Encounter for screening for cardiovascular disorders (principal); I70.0 Atherosclerosis of aorta
CPT/HCPCS: 76706

== ENCOUNTER 2023-09-18 14:40 | Emergency (ER) | payer OTHER ==
[2023-09-18 15:02] VITALS: TEMP 98.5
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
[2023-09-18 16:48] LABS: Basophils % (A) 0 %; Eosinophils # (A) 0.2 k/uL (0-0.7); Eosinophils % (A) 3 %; HCT 41.9 % (39.0-53.0); HGB 14.3 gm/dL (13.0-17.5); Lymphocytes # (A) 1.5 k/uL (1.0-4.8); Lymphocytes % (A) 18 %; MCH 31.4 pg (25.0-35.0); MCHC 34.1 g/dL (31.0-37.0); MCV 91.9 fL (80.0-100.0); Mean Platelet Volume 8.8; Monocytes # (A) 0.3 k/uL (0-1.0); Monocytes % (A) 4 %; Neutrophils # (A) 5.9 k/uL (1.3-7.7); Neutrophils % (A) 73 %; Platelet Count 165 k/uL (150-450); RBC 4.56 m/uL (4.30-5.90); RDW 12.7 % (11.5-15.5)
[2023-09-18 17:03] LABS: INR 0.9 (<1.2); Partial Thromboplastin Time 24.3 sec (22.0-30.0); Prothrombin Time 10.5 sec (10.0-12.5)
[2023-09-18 17:07] LABS: ALT 25 U/L (4-49); AST 28 U/L (17-59); African American GFR (CKD) >90 (>60 ml/min/1.73 sqM); Albumin 4.2 g/dL (3.5-5.0); Alkaline Phosphatase 114 U/L (38-126); Anion Gap 11 mmol/L; Blood Urea Nitrogen 18 mg/dL (9-20); Calcium 8.7 mg/dL (8.4-10.2); Carbon Dioxide 20 mmol/L (22-30); Chloride 105 mmol/L (98-107); Glucose 88 mg/dL (74-99); Non-African American GFR(CKD) 80 (>60 ml/min/1.73 sqM); Sodium 136 mmol/L (137-145); Total Bilirubin 0.5 mg/dL (0.2-1.3)
--- NOTE | 2023-09-18 17:56 | XR ---
EXAMINATION TYPE: XR chest 2V DATE OF EXAM: 09/18/2023 3:16 PM CLINICAL INDICATION:Male, 68 years old with history of difficulty breathing; [facility] COMPARISON: None TECHNIQUE: XR chest 2V. Frontal and lateral views of the chest.. FINDINGS: Lines/Tubes/Devices: No indwelling lines are seen. Heart/mediastinum: Heart size is normal. Mildly tortuous aorta. Pulmonary vascularity: Not increased, Lungs/Pleura: Hyperinflated lungs with some areas of relative lucency and moderate coarsening of the interstitium, likely COPD changes. Chronic change may account for some blunting of the right costophr enic angle, versus small effusion. Left costophrenic angle is relatively sharp. No visible pneumothor ax. No focal lung consolidation. Musculoskeletal: No acute osseous abnormality demonstrated in the limits of the exam. Mild degenerat federica changes of the dorsal spine and shoulders. Other findings: None. IMPRESSION: 1. No acute cardiopulmonary process. 2. COPD changes.
--- NOTE | 2023-09-18 18:22 | CT ---
CT CHEST FOR PULMONARY EMBOLISM. EXAMINATION TYPE: CT angio chest DATE OF EXAM: 09/18/2023 INDICATION: Hemoptysis CT DLP: 275.7 mGycm, Automated exposure control for dose reduction was used. CONTRAST: Patient injected with 100 ml mL of Isovue 370. COMPARISON: None TECHNIQUE: CT of the chest is performed on a spiral scan at 2 mm thick sections. Study is performed with intravenous contrast timed for evaluation for pulmonary embolism. This will limit additional po rtions of the evaluation. 3-D MIP images reconstructed by the technologist are reviewed on the compu ter in the coronal and sagittal planes. FINDINGS: No persistent filling defects are evident to suggest an acute pulmonary embolism. No mediastinal or hilar adenopathy enlarged by CT criteria is evident. Small right suprahilar lymph node may be present. The ascending aorta diameter at the level of the main pulmonary artery is 3.2 c m. The main pulmonary artery diameter at the bifurcation is 2.5 cm. There is a 3.2 cm density in the posterior medial right lower lung field. There are emphysematous blebs and bulla within the upper lung smith. There may be a 0.5 cm nodule p osterior right upper lung infiltrates [address] section through the upper abdomen. Calcifications are within the spleen IMPRESSION: 1. No acute pulmonary embolism. 2. 3.2 cm posterior medial right lung mass. 3. COPD
[2023-09-18 19:20] VITALS: BP 133/73; PULSE 68; RESP 19
== END 2023-09-18 19:12 | disposition home or self-care (01) ==
LOC: EC 14:40
DX: R04.2 Hemoptysis (principal); R91.8 Other nonspecific abnormal finding of lung field; I10 Essential (primary) hypertension; I25.10 Atherosclerotic heart disease of native coronary artery without angina pectoris; I25.2 Old myocardial infarction; J44.9 Chronic obstructive pulmonary disease, unspecified; E78.5 Hyperlipidemia, unspecified; F17.200 Nicotine dependence, unspecified, uncomplicated; Z79.02 Long term (current) use of antithrombotics/antiplatelets; Z79.51 Long term (current) use of inhaled steroids; Z79.899 Other long term (current) drug therapy; Z20.822 Contact with and (suspected) exposure to COVID-19
CPT/HCPCS: 36415; 93005; 80053; 83605; 84484; 85025; 85610; 85730; 87636; 71046; 71275; 99284; Q9967

== ENCOUNTER → 2023-09-22 | Outpatient (CLI) | payer OTHER ==
[2023-09-22 15:23] LABS: BUN/Creat Ratio 12.83 Ratio (12.00-20.00); Blood Urea Nitrogen 15.4 mg/dL (9.0-27.0); Calcium 9.3 mg/dL (8.7-10.3); Carbon Dioxide 23.8 mmol/L (21.6-31.8); Carcinoembryonic Antigen 3.1 ng/mL (0.0-4.9); Chloride 103 mmol/L (96-109); Glucose 101 mg/dL (70-110); Potassium 4.2 mmol/L (3.5-5.5); Sodium 138 mmol/L (135-145)
[2023-09-22 15:33] LABS: Basophils # (A) 0.06 X 10*3/uL (0.00-0.10); Eosinophils % (A) 3.2 %; HCT 44.8 % (39.6-50.0); HGB 14.4 g/dL (13.0-17.0); Lymphocytes # (A) 1.38 X 10*3/uL (0.90-5.00); Lymphocytes % (A) 22.2 %; MCH 29.6 pg (27.0-32.0); MCHC 32.1 g/dL (32.0-37.0); MCV 92.2 FL (80.0-97.0); Mean Platelet Volume 11.2 FL (9.5-12.2); Monocytes % (A) 4.8 %; NRBC Per 100 WBC 0 X 10*3/uL (0.00-0.01); Neutrophils # (A) 4.26 X 10*3/uL (1.80-7.70); Neutrophils % (A) 68.5 %; Platelet Count 165 X 10*3/uL (140-440); RBC 4.86 X 10*6/uL (4.40-5.60); RDW 12.9 % (11.5-14.5); WBC 6.22 X 10*3/uL (4.50-10.00)
[2023-09-22 15:41] LABS: Erythrocyte Sedimentation Rate 34 mm/Hr (0-20)
[2023-09-22 18:34] LABS: Aspergillus fumagatus IgE <0.10 kU/L
[2023-09-23 13:51] LABS: C-ANCA <1:20 Titer (<1:20)
[2023-09-26 23:39] LABS: Coccidiodes Antibody (CF) <1:2
[2023-09-26 23:57] LABS: Histoplasma Abs by ID Not Detected (Not Detected); Histoplasma Abs by Mycelia, CF <1:8 (<1:8)
== END | disposition home or self-care (01) ==
LOC: LABWHC1 10:28
PROVIDERS: ATTEND Internal Medicine
DX: R91.8 Other nonspecific abnormal finding of lung field (principal); R04.2 Hemoptysis
CPT/HCPCS: 36415; 80048; 82378; 85025; 85652; 86003; 86038; 86255; 86612; 86635; 86698

== ENCOUNTER 2023-09-24 10:45 | Day surgery (SDC) | payer OTHER ==
[2023-09-22 14:59] VITALS: BMI 26.4
[~2023-09-24 10:45] MED LIST changes: -ALPRAZolam 0.25 MG TAB PO PRN; -ALPRAZolam 0.5 MG TAB PO PRN; -ASPIRIN 325 MG TAB PO STA; -ATORVASTATIN 80 MG TAB PO STA; -HEPARIN SODIUM,PORCINE (1 ML) 2,500 UNIT in SODIUM CHLORIDE 0.9% 250 ML IRRIGATION PRN; -HEPARIN SODIUM,PORCINE 10,000 UNIT in SODIUM CHLORIDE 0.9% 1,000 ML IRRIGATION PRN; +LACTATED RINGERS 1,000 ML IV SCH; +LIDOCAINE 1% (10MG/ML) FOR IV START INTRADERMA PRN; -NITROGLYCERIN SL TABS 0.4 MG TAB SUBLINGUAL PRN; -SODIUM CHLORIDE 0.9% 1,000 ML in EMPTY BAG 1 BAG IV SCH
[2023-09-24] MEDS ORDERED: MIDAZOLAM 2 MG/2 ML VIAL ONE (12:07)
[2023-09-24] MEDS ORDERED: GLYCOPYRROLATE 0.2 MG/ML 2 ML VIAL ONE (12:07)
[2023-09-24] MEDS ORDERED: fentaNYL (PF) 50 MCG/ML 2 ML AMP ONE (12:07)
[2023-09-24] MEDS ORDERED: PROPOFOL 10 MG/ML 20 ML VIAL IV ONE (12:07)
[2023-09-24] MEDS ORDERED: LIDOCAINE 1% INJ 10MG/ML (20 ML MDV) ONE (12:07)
[2023-09-24] MEDS ORDERED: KETAMINE HCL IN 0.9 % NACL 50 MG/5 ML SYRINGE ONE (12:07)
[2023-09-24] MEDS ORDERED: LIDOCAINE 2% INJ 20 MG/ML INTRATRACH ONE (12:14)
[2023-09-24 12:57] VITALS: TEMP 97.6
[2023-09-24 13:45] VITALS: BP 137/63; PULSE 75; RESP 16
--- NOTE | 2023-09-24 18:58 | OP ---
OPERATIVE REPORT DATE OF SERVICE : PROCEDURE PERFORMED: Bronchoscopy and bronchoalveolar lavage of the right lower lobe. PREOPERATIVE DIAGNOSIS: Hemoptysis. POSTOPERATIVE DIAGNOSIS: Hemoptysis. ANESTHESIA USED: IV conscious sedation. DESCRIPTION OF PROCEDURE: The patient was brought in to the bronchoscopy suite, the patient was prepared prior to this as per bronchoscopy protocol. O2 was applied via Ventimask, and we monitored his O2 saturation continuously, cardiac rhythm was continuously monitored, and blood pressure was intermittently monitored. After adequate IV conscious sedation, the bronchoscope was advanced through a bite block into the area of the upper throat, vocal cords were visualized, and they seemed to be patent. Lidocaine was applied over the vocal cords, and the bronchoscope was advanced further down. Thorough examination was done of the trachea, bharat, right upper lobe, right middle lobe, right lower lobe, left upper lobe, lingula, and left lower lobe. There was no evidence of any endobronchial tumors. There was evidence of some purulent secretions noted, and the secretions were cleared and suctioned. Then the bronchoscope was wedged into the medial segment of the right lower lobe, and bronchoalveolar lavage of the right lower lobe was performed. Again, no evidence of any active bleeding was noted. The fluid was sent for different diagnostic studies. Procedure was well tolerated, and the daughter updated on his condition. The patient will be discharged, and he will see me in the office as scheduled. MMODL / IJN: [id number] /
[2023-09-27 18:29] LABS: Appearance,BF Slightly Cloudy (Clear); RBC, Body Fluid 50 /UL (0-2000)
[2023-09-28 07:50] LABS: Nucleated Cells, Body Fluid 290 /UL
== END 2023-09-24 13:48 | disposition home or self-care (01) ==
LOC: ORWHC2ENDO 10:45
PROVIDERS: ATTEND Internal Medicine
DX: R04.2 Hemoptysis (principal); I25.10 Atherosclerotic heart disease of native coronary artery without angina pectoris; I10 Essential (primary) hypertension; E78.5 Hyperlipidemia, unspecified; J44.9 Chronic obstructive pulmonary disease, unspecified; F43.10 Post-traumatic stress disorder, unspecified; M54.2 Cervicalgia; F17.210 Nicotine dependence, cigarettes, uncomplicated; Z79.02 Long term (current) use of antithrombotics/antiplatelets; F12.90 Cannabis use, unspecified, uncomplicated; Z79.51 Long term (current) use of inhaled steroids; Z79.82 Long term (current) use of aspirin; Z79.899 Other long term (current) drug therapy
CPT/HCPCS: 88108; 88305; 89050; 87070; 87205; 87116; 87102; 87206; 31624; J2001 ×2; J2250; J3010; J2704

== ENCOUNTER → 2023-09-30 | Outpatient (CLI) | payer OTHER ==
--- NOTE | 2023-09-30 10:50 | PE ---
EXAMINATION TYPE: PET CT fusion skull to thigh DATE OF EXAM: 09/30/2023 CLINICAL INDICATION:Male, 68 years old with history of R91.8 Lung mass; TECHNIQUE: Following the intravenous administration of 10.93 mCi of F-18 FDG, whole body images are performed from the skull base to the midthigh. Images are reviewed on the computer in the coronal, axial, and sagittal planes. Reconstructed rotating images are created on independent workstation and reviewed on the computer. A non-contrast CT is performed in conjunction with the PET scan. Glucose level 100 mg/dL CT DLP: 371.43 mGycm, Automated exposure control for dose reduction was used. COMPARISON: CT CTs most recent 09/18/2023, PET/CT None, FINDINGS: Mediastinal SUV mean is 2.0. Hepatic parenchyma SUV mean is 2.6. SKULL BASE AND NECK: No suspicious radiotracer activity. CHEST, MEDIASTINUM, AND HILAR REGION: Right lower lung airspace nodule with peripheral cavitation measuring Max 26 x 20 mm Max SUV 9.7. ABDOMEN AND PELVIS: No suspicious radiotracer activity. MUSCULOSKELETAL STRUCTURES: No suspicious radiotracer activity. OTHER CT: Paranasal sinus disease most pronounced in left maxillary sinus. Atherosclerosis of the art erial vasculature. Mild bilateral gynecomastia changes. Severe constipation of the coronary arteries. Scattered calcified granulomas in the spleen. Fat-containing umbilical hernia. IMPRESSION: Right lower lobe medial cystic nodule concerning for malignancy until proven otherwise. No evidence f or metastatic disease at this time.
== END | disposition home or self-care (01) ==
LOC: RADPETMAIN 06:16
PROVIDERS: ATTEND Internal Medicine
DX: R91.8 Other nonspecific abnormal finding of lung field (principal)
CPT/HCPCS: 78815; A9552

== ENCOUNTER → 2024-01-21 | Outpatient (CLI) | payer OTHER ==
[2024-01-21 14:31] LABS: African American GFR (CKD) >90 (>60 ml/min/1.73 sqM); Blood Urea Nitrogen 14 mg/dL (9-20); Non-African American GFR(CKD) 87 (>60 ml/min/1.73 sqM)
--- NOTE | 2024-01-21 15:29 | CT ---
EXAMINATION TYPE: CT chest w con DATE OF EXAM: 01/21/2024 COMPARISON: 09/18/2023 HISTORY: Hx hemoptysis, other non specific abnormal findings of lung field. CT DLP: 282.70 mGycm Automated exposure control for dose reduction was used. CONTRAST: CT scan of the chest is performed with IV Contrast, patient injected with 100 mL of Isovue 300. FINDINGS: LUNGS: Right lower lobe pleural-based mass medially is much smaller in size and currently measures 2. 1 x 1.9 cm versus prior measurement of 3.2 x 2.8 cm. Central focus of air is seen which may reflect c avitation. 6 mm pleural-based nodule right upper lobe laterally image 29. No additional nodules or ma sses present. No volume loss or focal consolidation. Mild strandy atelectasis right lung base. Centri lobular and paraseptal emphysema noted. MEDIASTINUM: There are no greater than 1 cm hilar or mediastinal lymph nodes. No pericardial effusi on is seen. Thoracic aorta is of normal caliber. The heart is not enlarged. UPPER ABDOMEN: No significant abnormality appreciated. OTHER: No additional significant abnormality is seen. IMPRESSION: Right lower lobe pleural-based mass medially is much smaller in size and currently measures 2.1 x 1.9 cm versus prior measurement of 3.2 x 2.8 cm. Central focus of air is seen which may reflect cavitati on.
== END | disposition home or self-care (01) ==
LOC: RADCTMAIN 13:51
PROVIDERS: ATTEND Internal Medicine
DX: R91.8 Other nonspecific abnormal finding of lung field (principal); R04.2 Hemoptysis
CPT/HCPCS: 82565; 84520; 71260; 36415; Q9967

== ENCOUNTER → 2024-07-24 | Outpatient (CLI) | payer OTHER ==
[2024-07-24 15:30] LABS: African American GFR (CKD) 80 (>60 ml/min/1.73 sqM); Blood Urea Nitrogen 17 mg/dL (9-20); Non-African American GFR(CKD) 69 (>60 ml/min/1.73 sqM)
--- NOTE | 2024-07-24 17:34 | CT ---
EXAMINATION TYPE: CT chest w con CT DLP: 227.10 mGycm, Automated exposure control for dose reduction was used. DATE OF EXAM: 07/24/2024 3:54 PM COMPARISON: CT chest 01/21/2024, PET/CT 09/30/2023, CTA chest 09/18/2023, CT low-dose lung 07/28/2023 CLINICAL INDICATION:Male, 69 years old with history of R91.8 OTHER NONSPECIFIC ABNORMAL FINDING OF EMY NG F; [facility], f/u for mass in right lung x4-5 months. TECHNIQUE: Multiple axial images were obtained through the chest following the administration of 100 cc of Isovue 300. . Coronal and sagittal reformats reviewed. FINDINGS: LUNGS/ PLEURA: Moderate centrilobular and paraseptal emphysematous changes redemonstrated. No pleural effusion or pneumothorax. Similar minimal linear scarring within the lingula and right lower lobe. T he size of cavitary lesion along the medial aspect of the right lower lobe with spiculated thickened wall. This measures 2.9 x 2.0 cm (series 4, image 33), previously 2.2 x 2.0 cm. The wall thickening i s most prominent along its superior aspect. Stable 7 mm right upper lobe lateral pulmonary nodule ramila suring 7 mm (series 4, image 25). No new suspicious pulmonary nodules. AIRWAY: Patent. Trace secretions within the distal trachea extending into the right mainstem bronchus . HEART: Size within normal limits.No pericardial effusion. Coronary artery calcifications. MEDIASTINUM: No lymph nodes greater than 1 cm short axis. VASCULATURE: No aortic aneurysm. Mild atherosclerotic calcification of the aorta and its branches. MUSCULOSKELETAL: No acute osseous abnormalities. Mild multilevel degenerative disc disease. No aggres sive osseous lesion. SOFT TISSUES/LYMPH NODES: Mild bilateral gynecomastia. LOWER NECK: No significant findings. UPPER ABDOMEN: Cholelithiasis. Couple of calcified granulomas within the spleen. IMPRESSION: 1. Enlarging medial right lower lobe cavitary lesion with eccentric thick spiculated wall. This now m easures 2.9 x 2.0 cm, previously 2.2 x 2.0 cm. Raises concern for primary lung malignancy. Consider f urther evaluation with PET/CT versus tissue sampling. 2. Moderate COPD changes. [facility], , 07/24/2024 5:31 PM
== END | disposition home or self-care (01) ==
LOC: RADCTMAIN 14:35
PROVIDERS: ATTEND Internal Medicine
DX: R91.8 Other nonspecific abnormal finding of lung field (principal); J44.9 Chronic obstructive pulmonary disease, unspecified
CPT/HCPCS: 82565; 84520; 71260; 36415; Q9967

== ENCOUNTER → 2025-01-12 | Outpatient (CLI) | payer OTHER ==
[2025-01-12 13:33] LABS: African American GFR (CKD) 84 (>60 ml/min/1.73 sqM); Blood Urea Nitrogen 20 mg/dL (9-20); Non-African American GFR(CKD) 72 (>60 ml/min/1.73 sqM)
--- NOTE | 2025-01-12 14:25 | CT ---
EXAMINATION TYPE: CT chest w con DATE OF EXAM: 01/12/2025 2:16 PM COMPARISON: 07/24/2024 CLINICAL INDICATION: Male, 69 years old with history of R91.8 OTHER NONSPECIFIC ABNORMAL FINDING OF L LILIANA F, F/u for abnormal finding of lung field. TECHNIQUE: Axial images were obtained at 5 mm thick sections. Reconstructed images are reviewed on [employer] computer in the coronal plane. Contrast used:100ml mL of Isovue 300 with IV Contrast, (none if empty) Oral contrast used: (none if empty) CT DLP: 282.2 mGycm, Automated exposure control for dose reduction was used. FINDINGS: Portion of the thyroid visualized is normal. Emphysematous changes are present. There is a cavitation in the posterior medial right midlung. This is adjacent to an oval spiculated density measuring 2.4 x 1.3 cm. Series 3 image 36. Previous measur ement reported as 2.9 x 2.0 cm. PET/CT could provide additional information. No enlarged mediastinal or hilar adenopathy is evident. The ascending aorta diameter at the level o f the main pulmonary artery is 3.2 cm. The main pulmonary artery diameter at the bifurcation is 2.3 cm. No significant coronary artery calcifications. Limited CT sections are obtained through the upper abdomen. There is mild fatty infiltration liver. C alcifications within the spleen. IMPRESSION: 1. Diminished size of the spiculated nodule adjacent to a cavitation or emphysematous bleb posterior right midlung. [facility], , 01/12/2025 2:23 PM
== END | disposition home or self-care (01) ==
LOC: RADCTMAIN 12:36
PROVIDERS: ATTEND Internal Medicine Critical Care Medicine
DX: R91.8 Other nonspecific abnormal finding of lung field (principal); R91.1 Solitary pulmonary nodule; F43.9 Reaction to severe stress, unspecified
CPT/HCPCS: 82565; 84520; 71260; 36415; Q9967